=== PATIENT | male | born 1985 | race Caucasian/White ===

== ENCOUNTER → 2024-08-16 16:14 | Outpatient (REF) | payer OTHER, SELFPAY | LOC: HWRAD 16:14 | PROVIDERS: ATTENDING PHYSICIAN Internal Medicine Rheumatology; FAMILY PHYSICIAN Family Medicine | DX: R59.1 Generalized enlarged lymph nodes (principal); R53.83 Other fatigue; D44.0 Neoplasm of uncertain behavior of thyroid gland | CPT/HCPCS: 76536 ==